=== PATIENT | male | born 1945 | race Caucasian/White ===

== ENCOUNTER 2020-12-07 08:02 | Outpatient (CLI) | payer MEDICARE | END 2020-12-07 08:03 | disposition home or self-care (01) | LOC: CSHCT 08:02 | PROVIDERS: ATTEND Internal Medicine Gastroenterology | DX: K90.0 Celiac disease (principal); R63.4 Abnormal weight loss; K82.8 Other specified diseases of gallbladder; N32.89 Other specified disorders of bladder; N40.0 Benign prostatic hyperplasia without lower urinary tract symptoms; R19.06 Epigastric swelling, mass or lump | CPT/HCPCS: 74177; 82565 ==

== ENCOUNTER 2021-06-06 10:30 | Outpatient (CLI) | payer MEDICARE ==
[2021-06-06 12:18] LABS: Hemoglobin 13.4 g/dL (13.5-17.5); Mean Corpuscular HGB CONC 32.4 g/dL (32.0-36.0); Mean Corpuscular Hemoglobin 29.1 pg (27.0-33.0); Mean Platelet Volume 10.3 fl (7.4-10.4); Platelet Count 236 10x3/uL (150-450); RBC Distribution Width 13.4 % (11.5-14.5); White Blood Cell (WBC) Count 7.1 10x3/uL (3.5-10.5)
[2021-06-06 12:30] LABS: Anion Gap 14 mmol/L (10-20); BUN (Urea Nitrogen) 21 mg/dL (8.4-25.7); Calc. Creatinine Clearance 0 mL/min (70-130); Calcium 9.4 mg/dL (7.8-10.44); Carbon Dioxide 24 mmol/L (23-31); Chloride 106 mmol/L (98-107); Glucose 199 mg/dL (83-110); Potassium 5.1 mmol/L (3.5-5.1); Sodium 139 mmol/L (136-145)
[2021-06-06 20:27] LABS: SARS-CoV-2 PCR by NAA Not Detected (NotDetected)
== END 2021-06-06 10:31 | disposition home or self-care (01) ==
LOC: CSHLAB 10:30
PROVIDERS: ATTEND Surgery
DX: Z01.818 Encounter for other preprocedural examination (principal); Z20.822 Contact with and (suspected) exposure to COVID-19
CPT/HCPCS: 80048; 85027; 93005; 93010; U0003; U0005

== ENCOUNTER 2021-06-09 05:52 | Day surgery (SDC) | payer MEDICARE ==
[2021-06-07 15:27] VITALS: BMI 27.8
[2021-06-09] MEDS ORDERED: Lidocaine 1% MPF 2 ML VIAL ONE (06:10)
[2021-06-09] MEDS ORDERED: EPINEPHrine 1 MG/ML AMP ONE (06:39)
[2021-06-09] MEDS ORDERED: Bupivacaine PF 0.5% 30 ML VIAL ONE (06:39)
[2021-06-09] MEDS ORDERED: Rocuronium Bromide 10 MG/ML (10ML VIAL) ONE (07:17)
[2021-06-09] MEDS ORDERED: PROPOFOL 20 ML ONE (07:17)
[2021-06-09] MEDS ORDERED: Lidocaine 1% PF 5 ML VIAL ONE (07:17)
[2021-06-09] MEDS ORDERED: Fentanyl 250 MCG/5 ML VIAL ONE (07:17)
[2021-06-09] MEDS ORDERED: Ondansetron PF 4 MG/2 ML Vial ONE (07:17)
[2021-06-09] MEDS ORDERED: Metoclopramide HCl 10 MG/2 ML VIAL ONE (07:17)
[2021-06-09] MEDS ORDERED: PHENYLEPHRINE-NS 100 MCG/ML 10 ML SYRINGE ONE (07:50)
[2021-06-09] MEDS ORDERED: ePHEDrine Sulfate 50 MG/10 ML VIAL ONE (07:52)
[2021-06-09] MEDS ORDERED: Glycopyrrolate 0.2 MG/ML 5 ML SYRINGE ONE (08:22)
[2021-06-09] MEDS ORDERED: HYDROcodone/Acetaminophen 5/325 mg Tablet PO PRN (08:39)
== END 2021-06-09 10:00 | disposition home or self-care (01) ==
LOC: CSHSDC 05:52
PROVIDERS: ATTEND Surgery
PROC: 0FT44ZZ Resection of Gallbladder, Percutaneous Endoscopic Approach (ICD-10-PCS; principal; 2021-06-09)
DX: K80.10 Calculus of gallbladder with chronic cholecystitis without obstruction (principal); Z79.899 Other long term (current) drug therapy; Z79.01 Long term (current) use of anticoagulants; I50.9 Heart failure, unspecified; E11.9 Type 2 diabetes mellitus without complications; E78.5 Hyperlipidemia, unspecified; G47.33 Obstructive sleep apnea (adult) (pediatric); I25.10 Atherosclerotic heart disease of native coronary artery without angina pectoris
CPT/HCPCS: 36416; 88304; J0171; J0690; J2405; J2704; J2765; J3010; S0020

== ENCOUNTER 2022-11-27 12:16 | Outpatient (CLI) | payer MEDICARE | END 2022-11-27 12:17 | disposition home or self-care (01) | LOC: CSHRAD 12:16 | PROVIDERS: ATTEND Nurse Practitioner Adult Health | DX: L97.522 Non-pressure chronic ulcer of other part of left foot with fat layer exposed (principal) ==

== ENCOUNTER 2023-01-22 13:46 | Outpatient (CLI) | payer MEDICARE | END 2023-01-22 13:47 | disposition home or self-care (01) | LOC: CSHWCC 13:46 | PROVIDERS: ATTEND Nurse Practitioner Family | DX: L89.312 Pressure ulcer of right buttock, stage 2 (principal); T87.89 Other complications of amputation stump; E11.621 Type 2 diabetes mellitus with foot ulcer; L97.422 Non-pressure chronic ulcer of left heel and midfoot with fat layer exposed; L97.512 Non-pressure chronic ulcer of other part of right foot with fat layer exposed; Z89.422 Acquired absence of other left toe(s) | CPT/HCPCS: 97139; 97597; G0463; 99213 ==

== ENCOUNTER 2023-02-02 12:04 | Outpatient (CLI) | payer MEDICARE | END 2023-02-02 12:05 | disposition home or self-care (01) | LOC: CSHCT 12:04 | PROVIDERS: ATTEND Nurse Practitioner Adult Health | DX: M54.42 Lumbago with sciatica, left side (principal); M47.816 Spondylosis without myelopathy or radiculopathy, lumbar region; M48.061 Spinal stenosis, lumbar region without neurogenic claudication; N20.0 Calculus of kidney; N28.9 Disorder of kidney and ureter, unspecified | CPT/HCPCS: 72131 ==

== ENCOUNTER 2023-02-05 15:09 | Outpatient (CLI) | payer MEDICARE | END 2023-02-05 15:10 | disposition home or self-care (01) | LOC: CSHWCC 15:09 | PROVIDERS: ATTEND Nurse Practitioner Family | DX: T87.89 Other complications of amputation stump (principal); E11.621 Type 2 diabetes mellitus with foot ulcer; L97.422 Non-pressure chronic ulcer of left heel and midfoot with fat layer exposed; L97.512 Non-pressure chronic ulcer of other part of right foot with fat layer exposed; L97.421 Non-pressure chronic ulcer of left heel and midfoot limited to breakdown of skin | CPT/HCPCS: 87070; 87077; 87186; 87205; 97139; G0463; 99213 ==

== ENCOUNTER 2023-02-19 09:26 | Outpatient (CLI) | payer MEDICARE | END 2023-02-19 09:27 | disposition home or self-care (01) | LOC: CSHWCC 09:26 | PROVIDERS: ATTEND Nurse Practitioner Family | DX: E11.621 Type 2 diabetes mellitus with foot ulcer (principal); L97.422 Non-pressure chronic ulcer of left heel and midfoot with fat layer exposed; L97.512 Non-pressure chronic ulcer of other part of right foot with fat layer exposed; L97.421 Non-pressure chronic ulcer of left heel and midfoot limited to breakdown of skin; T87.89 Other complications of amputation stump | CPT/HCPCS: 97139; 97597; G0463; 99212 ==

== ENCOUNTER 2023-02-22 11:12 | Outpatient (CLI) | payer MEDICARE | END 2023-02-22 11:13 | disposition home or self-care (01) | LOC: CSHWCC 11:12 | PROVIDERS: ATTEND Nurse Practitioner Family | DX: E11.621 Type 2 diabetes mellitus with foot ulcer (principal); L97.421 Non-pressure chronic ulcer of left heel and midfoot limited to breakdown of skin | CPT/HCPCS: 97139; G0463; 99211 ==

== ENCOUNTER 2023-02-27 08:51 | Outpatient (CLI) | payer MEDICARE | END 2023-02-27 08:52 | disposition home or self-care (01) | LOC: CSHWCC 08:51 | PROVIDERS: ATTEND Nurse Practitioner Family | DX: E11.621 Type 2 diabetes mellitus with foot ulcer (principal); L97.422 Non-pressure chronic ulcer of left heel and midfoot with fat layer exposed; L97.421 Non-pressure chronic ulcer of left heel and midfoot limited to breakdown of skin; L97.512 Non-pressure chronic ulcer of other part of right foot with fat layer exposed; T87.89 Other complications of amputation stump | CPT/HCPCS: 97139; G0463; 99213 ==

== ENCOUNTER 2023-02-27 09:38 | Emergency (ER) | payer MEDICARE ==
[2023-02-27 10:37] LABS: #Eosinphils 0.1 10x3/uL (0.0-0.5); #Neutrophils 7.2 10x3/uL (1.5-8.4); %Basophils 0.4 % (0.0-2.0); %Eosinophils 0.8 % (0.0-6.0); %Lymphocytes 11.7 % (18.0-47.0); %Monocytes 10.7 % (0.0-10.0); %Neutrophils 76.2 % (40.0-75.0); Hemoglobin 13.6 g/dL (13.5-17.5); Mean Corpuscular HGB CONC 33.4 g/dL (32.0-36.0); Mean Corpuscular Hemoglobin 29.4 pg (27.0-33.0); Mean Corpuscular Volume 87.9 fl (81.2-95.1); Mean Platelet Volume 10.1 fl (7.4-10.4); Platelet Count 294 10x3/uL (150-450); RBC Distribution Width 14.4 % (11.5-14.5); Red Blood Cell (RBC) Count 4.63 10x6/uL (4.32-5.72); White Blood Cell (WBC) Count 9.5 10x3/uL (3.5-10.5)
[2023-02-27 11:09] LABS: ALT (SGPT) 17 U/L (8-55); AST (SGOT) 21 U/L (5-34); Albumin 3.8 g/dL (3.4-4.8); Alkaline Phosphatase 119 U/L (40-110); Anion Gap 15 mmol/L (10-20); BUN (Urea Nitrogen) 23 mg/dL (8.4-25.7); Bilirubin, Total 0.3 mg/dL (0.2-1.2); Calc. Creatinine Clearance 0 mL/min (70-130); Calcium 9.3 mg/dL (7.8-10.44); Carbon Dioxide 26 mmol/L (23-31); Chloride 103 mmol/L (98-107); Estimated GFR 91; Globulin 3.6 g/dL (2.4-3.5); Glucose 147 mg/dL (83-110); Potassium 4.6 mmol/L (3.5-5.1); Protein, Total 7.4 g/dL (5.8-8.1); Sodium 139 mmol/L (136-145)
[2023-02-27] MEDS ORDERED: Vancomycin 1 GM VIAL ONE (11:44)
== END 2023-02-27 19:08 | disposition short-term general hospital (02) ==
LOC: CSHERS 09:38
DX: E11.621 Type 2 diabetes mellitus with foot ulcer (principal); I50.9 Heart failure, unspecified; Z79.899 Other long term (current) drug therapy; Z79.4 Long term (current) use of insulin; Z79.01 Long term (current) use of anticoagulants
CPT/HCPCS: 36415; 80053; 83605; 85025; 87040; 87070; 87077; 87186; 87205; 93923; 96365; 96366; J3370